=== PATIENT | male | born 1975 | race Caucasian/White ===

== ENCOUNTER 2019-06-22 02:23 | Inpatient (IN) | payer MEDICAID, OTHER ==
[2019-06-22 03:47] LABS: ADD MAN DIFF? NO
[2019-06-22 03:55] LABS: ALANINE AMINOTRANSFERASE 27 IU/L (13-69); ALBUMIN 4.3 g/dl (3.3-4.9); ALBUMIN/GLOBULIN RATIO 1.22; ALKALINE PHOSPHATASE 100 IU/L (42-121); ANION GAP 7 (5-13); ASPARTATE AMINO TRANSFERASE 28 IU/L (15-46); BILIRUBIN,INDIRECT 0.6 mg/dl (0-1.1); BILIRUBIN,TOTAL 0.6 mg/dl (0.2-1.3); BLOOD UREA NITROGEN 7 mg/dl (7-20); CALCIUM 9.4 mg/dl (8.4-10.2); CARBON DIOXIDE 31 mmol/L (21-31); CHLORIDE 102 mmol/L (97-110); CREATININE 0.79 mg/dl (0.61-1.24); Estimated GFR > 60 mL/min (>60); GLUCOSE 142 mg/dl (70-220); LIPASE 33 U/L (23-300); POTASSIUM 4.1 mmol/L (3.5-5.1); SODIUM 140 mmol/L (135-144)
[2019-06-22 04:03] LABS: BASOPHILS % 0.3 % (0.0-2.0); EOSINOPHILS % 0.1 % (0.0-7.0); HEMATOCRIT 43.3 % (42.0-52.0); HEMOGLOBIN 14.3 g/dl (14.0-18.0); LYMPHOCYTES # 0.7 10^3/ul (0.8-2.9); LYMPHOCYTES % 4.5 % (15.0-51.0); MEAN CORPUSCULAR HEMOGLOBIN 31.4 pg (29.0-33.0); MEAN CORPUSCULAR VOLUME 95.2 fl (82.0-101.0); MEAN PLATELET VOLUME 9.6 fl (7.4-10.4); MONOCYTE # 0.7 10^3/ul (0.3-0.9); MONOCYTES % 4.6 % (0.0-11.0); NEUTROPHIL # 13.4 10^3/ul (1.6-7.5); PLATELET COUNT 347 10^3/UL (140-415); RED BLOOD COUNT 4.55 10^6/ul (4.70-6.10); RED CELL DISTRIBUTION WIDTH 12.5 % (11.5-14.5)
[2019-06-22 04:03] LABS: WHITE BLOOD COUNT 14.9 10^3/ul (4.8-10.8)
[2019-06-22] MEDS: SOD CHLORIDE 0.9% 1,000 ML IV ×2 (04:03→07:29)
[2019-06-22] MEDS: ONDANSETRON 4 MG INJ IV ×2 (04:04→07:29)
[2019-06-22] MEDS: HYDROmorphONE 1 MG/ML SYG IV ×2 (04:04→07:29)
[2019-06-22 04:24] LABS: ADD UMIC YES; UR AMORPHOUS CRYSTAL FEW /HPF (NONE SEEN); UR ASCORBIC ACID NEGATIVE (NEGATIVE); UR BILIRUBIN (Dip) NEGATIVE (NEGATIVE); UR BLOOD (Dip) NEGATIVE (NEGATIVE); UR CLARITY CLOUDY (CLEAR); UR COLOR YELLOW (YELLOW); UR GLUCOSE (Dip) NEGATIVE (NEGATIVE); UR KETONES (Dip) 1+ mg/dL (NEGATIVE); UR LEUKOCYTE ESTERASE (Dip) TRACE Leu/ul (NEGATIVE); UR NITRITE (Dip) NEGATIVE (NEGATIVE); UR RBC 4 /HPF (0-5); UR SPECIFIC GRAVITY (Dip) 1.015 (1.003-1.030); UR TOTAL PROTEIN (Dip) NEGATIVE (NEGATIVE); UR UROBILINOGEN (Dip) NEGATIVE (NEGATIVE); UR WBC 34 /HPF (0-5)
[2019-06-22] MEDS: IOHEXOL 300MG/ML 150 ML BTL (06:19)
[2019-06-22] MEDS: SOD CHLORIDE 0.9% 100 ML (06:19)
[2019-06-22] MEDS ORDERED: ONDANSETRON 4 MG INJ IV (06:30)
[2019-06-22] MEDS ORDERED: ACETAMINOPHEN 325 MG TAB PO (06:30)
[2019-06-22 06:41] LABS: TOTAL PROTEIN 7.7 g/dl (6.1-8.1)
[2019-06-22] MEDS ORDERED: CEFTRIAXONE 1 GM/50 ML (PMX) 50 ML IVPB (08:00)
[2019-06-22] MEDS ORDERED: NACL 0.9% 3 ML SYG IV (08:00)
[2019-06-22] MEDS: DEXTROSE 5%-0.45% NACL 1,000 ML IV ×3 (08:13→23:58)
[2019-06-22 09:35] LABS: CARCINOEMBRYONIC ANTIGEN 18.4 ng/ml (0.0-5.0)
[2019-06-22] MEDS: PIPER-TAZO 3.375 GM IV (PMX) 100 ML IVPB ×4 (10:56→23:59)
[2019-06-22] MEDS: morphine 2 MG INJ IV ×2 (11:53→18:44)
[2019-06-22] MEDS: POLYETHYLENE GLYCOL 3350 119 GM POWDER PO (18:30)
[2019-06-22] MEDS: BISACODYL (EC) 5 MG TAB PO (21:35)
[2019-06-22] MEDS: MAGNESIUM CITRATE 300 ML BTL PO (21:48)
[2019-06-22] MEDS: POLYETHYLENE GLYCOL 17 GM PACKET PO (22:39)
[2019-06-23 05:02] LABS: ADD MAN DIFF? NO
[2019-06-23 05:10] LABS: WHITE BLOOD COUNT 17.5 10^3/ul (4.8-10.8)
[2019-06-23 05:10] LABS: BASOPHILS % 0.2 % (0.0-2.0); EOSINOPHILS # 0.1 10^3/ul (0.0-0.5); EOSINOPHILS % 0.5 % (0.0-7.0); HEMATOCRIT 41.9 % (42.0-52.0); HEMOGLOBIN 13.8 g/dl (14.0-18.0); LYMPHOCYTES # 1.1 10^3/ul (0.8-2.9); LYMPHOCYTES % 6.2 % (15.0-51.0); MEAN CORPUSCULAR HEMOGLOBIN 31.2 pg (29.0-33.0); MEAN CORPUSCULAR HGB CONC 32.9 g/dl (32.0-37.0); MEAN CORPUSCULAR VOLUME 94.6 fl (82.0-101.0); MEAN PLATELET VOLUME 9.4 fl (7.4-10.4); MONOCYTE # 1.2 10^3/ul (0.3-0.9); MONOCYTES % 6.8 % (0.0-11.0); NEUTROPHILS % 85.8 % (39.0-77.0); PLATELET COUNT 306 10^3/UL (140-415); RED BLOOD COUNT 4.43 10^6/ul (4.70-6.10); RED CELL DISTRIBUTION WIDTH 12.7 % (11.5-14.5)
[2019-06-23 05:48] LABS: ALANINE AMINOTRANSFERASE 22 IU/L (13-69); ALBUMIN 3.5 g/dl (3.3-4.9); ALBUMIN/GLOBULIN RATIO 1.34; ALKALINE PHOSPHATASE 84 IU/L (42-121); ANION GAP 7 (5-13); ASPARTATE AMINO TRANSFERASE 20 IU/L (15-46); BILIRUBIN,INDIRECT 0.8 mg/dl (0-1.1); BILIRUBIN,TOTAL 0.8 mg/dl (0.2-1.3); BLOOD UREA NITROGEN 10 mg/dl (7-20); CALCIUM 8.8 mg/dl (8.4-10.2); CARBON DIOXIDE 31 mmol/L (21-31); CHLORIDE 100 mmol/L (97-110); CHOL/HDL RATIO 3.1 RATIO; CHOLESTEROL 163 mg/dl (100-200); CREATININE 0.81 mg/dl (0.61-1.24); Estimated GFR > 60 mL/min (>60); GLUCOSE 121 mg/dl (70-220); HDL CHOLESTEROL 51 mg/dl (27-67); LDL CHOLESTEROL,CALCULATED 99 mg/dl; MAGNESIUM 1.9 mg/dl (1.7-2.5); PHOSPHORUS 3.2 mg/dl (2.5-4.9); SODIUM 138 mmol/L (135-144); TOTAL PROTEIN 6.1 g/dl (6.1-8.1); TRIGLYCERIDES 67 mg/dl (0-149)
[2019-06-23 06:04] LABS: THYROID STIMULATING HORMONE 0.206 MIU/L (0.465-4.680)
[2019-06-23 06:12] LABS: HEMOGLOBIN A1C 5.3 % (0-5.9)
[2019-06-23] MEDS: PANTOPRAZOLE 40 MG INJ IV (06:21)
[2019-06-23] MEDS: morphine 2 MG INJ IV ×2 (06:21→10:23)
[2019-06-23] MEDS: PIPER-TAZO 3.375 GM IV (PMX) 100 ML IVPB ×4 (06:21→23:04)
[2019-06-23] MEDS: POLYETHYLENE GLYCOL 3350 119 GM POWDER PO (06:29)
[2019-06-23] MEDS: BISACODYL (EC) 5 MG TAB PO ×2 (08:19→15:47)
[2019-06-23] MEDS: DEXTROSE 5%-0.45% NACL 1,000 ML IV ×2 (08:22→15:51)
[2019-06-23 11:39] LABS: FREE T4 (FREE THYROXINE) 1.23 ng/dl (0.64-1.79)
[2019-06-23] MEDS: MINERAL OIL 133 ML ENEMA PR ×2 (14:00→16:00)
[2019-06-23 14:15] LABS: ALPHA FETOPROTEIN 2.48 IU/L (0.00-7.21)
[2019-06-23] MEDS: PEG/ELECTROLYTES 4L BTL PO (15:48)
[2019-06-23] MEDS: ONDANSETRON 4 MG INJ IV (15:50)
[2019-06-24] MEDS: DEXTROSE 5%-0.45% NACL 1,000 ML IV ×3 (02:24→18:06)
[2019-06-24] MEDS: PIPER-TAZO 3.375 GM IV (PMX) 100 ML IVPB ×3 (05:19→18:31)
[2019-06-24] MEDS: PANTOPRAZOLE 40 MG INJ IV (05:19)
[2019-06-24] MEDS: BISACODYL (EC) 5 MG TAB PO (06:46)
[2019-06-24] MEDS: PEG/ELECTROLYTES 4L BTL PO (06:47)
[2019-06-24] MEDS: ONDANSETRON 4 MG INJ IV (09:52)
[2019-06-24] MEDS: PROPOFOL 40 ML (18:06)
[2019-06-24] MEDS: LIDOCAINE 100 MG SYRINGE (18:06)
[2019-06-24] MEDS: morphine 2 MG INJ IV (21:46)
[2019-06-25] MEDS: PIPER-TAZO 3.375 GM IV (PMX) 100 ML IVPB ×5 (00:12→23:58)
[2019-06-25] MEDS: DEXTROSE 5%-0.45% NACL 1,000 ML IV (00:15)
[2019-06-25] MEDS: SOD CHLORIDE 0.9% 500 ML IV (02:43)
[2019-06-25] MEDS: PANTOPRAZOLE 40 MG INJ IV (05:11)
[2019-06-25 05:14] LABS: ADD MAN DIFF? NO
[2019-06-25 05:19] LABS: WHITE BLOOD COUNT 9.8 10^3/ul (4.8-10.8)
[2019-06-25 05:19] LABS: BASOPHIL # 0.1 10^3/ul (0.0-0.1); BASOPHILS % 0.5 % (0.0-2.0); EOSINOPHILS # 0.2 10^3/ul (0.0-0.5); EOSINOPHILS % 1.5 % (0.0-7.0); HEMATOCRIT 35.5 % (42.0-52.0); HEMOGLOBIN 11.6 g/dl (14.0-18.0); LYMPHOCYTES # 1.2 10^3/ul (0.8-2.9); LYMPHOCYTES % 11.7 % (15.0-51.0); MEAN CORPUSCULAR HEMOGLOBIN 31.4 pg (29.0-33.0); MEAN CORPUSCULAR HGB CONC 32.7 g/dl (32.0-37.0); MEAN CORPUSCULAR VOLUME 96.2 fl (82.0-101.0); MEAN PLATELET VOLUME 9.6 fl (7.4-10.4); MONOCYTE # 0.8 10^3/ul (0.3-0.9); MONOCYTES % 7.6 % (0.0-11.0); NEUTROPHIL # 7.7 10^3/ul (1.6-7.5); NEUTROPHILS % 78.3 % (39.0-77.0); PLATELET COUNT 254 10^3/UL (140-415); RED BLOOD COUNT 3.69 10^6/ul (4.70-6.10); RED CELL DISTRIBUTION WIDTH 12.5 % (11.5-14.5)
[2019-06-25 05:37] LABS: ALANINE AMINOTRANSFERASE 20 IU/L (13-69); ALBUMIN 2.8 g/dl (3.3-4.9); ALKALINE PHOSPHATASE 52 IU/L (42-121); ANION GAP 4 (5-13); ASPARTATE AMINO TRANSFERASE 18 IU/L (15-46); BILIRUBIN,INDIRECT 0.5 mg/dl (0-1.1); BILIRUBIN,TOTAL 0.5 mg/dl (0.2-1.3); BLOOD UREA NITROGEN 3 mg/dl (7-20); CARBON DIOXIDE 34 mmol/L (21-31); CHLORIDE 102 mmol/L (97-110); CREATININE 0.82 mg/dl (0.61-1.24); Estimated GFR > 60 mL/min (>60); GLUCOSE 138 mg/dl (70-220); SODIUM 140 mmol/L (135-144); TOTAL PROTEIN 5.6 g/dl (6.1-8.1)
[2019-06-25] MEDS: POTASSIUM CHLORIDE (SR) 20 MEQ TAB PO (06:47)
[2019-06-25] MEDS: morphine 2 MG INJ IV ×4 (10:18→22:35)
[2019-06-26] MEDS: PANTOPRAZOLE 40 MG INJ IV (06:06)
[2019-06-26] MEDS: PIPER-TAZO 3.375 GM IV (PMX) 100 ML IVPB ×3 (06:06→17:52)
[2019-06-26] MEDS: morphine 2 MG INJ IV ×3 (06:07→14:47)
[2019-06-26] MEDS: POTASSIUM CHLORIDE 20 MEQ POWDER FOR ORAL SOLN PO (10:33)
== END 2019-06-26 19:15 | disposition home or self-care (01) | DRG 375 ==
LOC: E/R 02:23 → MS1 06:26
PROC: 0DBH8ZX Excision of Cecum, Via Natural or Artificial Opening Endoscopic, Diagnostic (ICD-10-PCS; principal; 2019-06-24 15:18)
PROC: 0DBM8ZZ Excision of Descending Colon, Via Natural or Artificial Opening Endoscopic (ICD-10-PCS; 2019-06-24 15:18)
DX: C18.0 Malignant neoplasm of cecum (principal); C78.7 Secondary malignant neoplasm of liver and intrahepatic bile duct; K35.80 Unspecified acute appendicitis; N39.0 Urinary tract infection, site not specified; F17.210 Nicotine dependence, cigarettes, uncomplicated; K64.8 Other hemorrhoids; Z80.0 Family history of malignant neoplasm of digestive organs
CPT/HCPCS: 36415; 71250; 74177; 74182; 80053; 80061; 81001; 82105; 82378; 83036; 83690; 83735; 84100; 84439; 84443; 85025; 86301; 87040-91; 87086; 88305; 96361; 96374; 96375; 99285-25

== ENCOUNTER 2019-07-24 06:48 | Day surgery (SDC) | payer BC ==
[2019-07-24] MEDS: SOD CHLORIDE 0.9% 1,000 ML IV (07:48)
[2019-07-24 08:11] LABS: INR 0.94; PROTIME 12.7 Sec (11.9-14.9)
[2019-07-24 08:13] LABS: PARTIAL THROMBOPLASTIN TIME 25.8 Sec (23.0-35.0)
[2019-07-24] MEDS: LIDOCAINE 1% (MDV) 20 ML INJ (08:25)
[2019-07-24] MEDS: FENTAnyl 50 MCG/ML VIAL (08:57)
[2019-07-24] MEDS: MIDAZOLAM 1 MG/ML 2 ML INJ (08:57)
[2019-07-24] MEDS ORDERED: HYDROCODONE/APAP (5/325) TAB (10:00)
[2019-07-24] MEDS: HYDROCODONE/APAP (5/325) TAB PO (10:14)
== END 2019-07-24 12:38 | disposition home or self-care (01) ==
LOC: SDS 06:48
DX: C78.7 Secondary malignant neoplasm of liver and intrahepatic bile duct (principal); C18.0 Malignant neoplasm of cecum
CPT/HCPCS: 47000; 77012; 85610; 85730; 88307; 88313